=== PATIENT | male | born 1945 | race Hispanic/Latino ===

== ENCOUNTER 2017-10-03 18:46 | Inpatient (IN) | payer MEDICARE ==
[~2017-10-03] VITALS: Ht 170.2 cm; Wt 85.1 kg
[2017-10-03 19:09] LABS: CREATININE 1.2 mg/dL (0.5-1.5); POTASSIUM 3.7 mmol/L (3.5-5.1)
[2017-10-03 19:14] LABS: ALBUMIN 3.5 g/dL (3.5-5.0); BILIRUBIN,TOTAL 0.2 mg/dL (0.2-1.0); TOTAL PROTEIN, SERUM 7.2 g/dL (6.0-8.3)
[2017-10-03] MEDS ORDERED: GLUCAGON 1MG KIT 1 MG ML ONE (19:32)
[2017-10-03] MEDS ORDERED: TETRACAINE HCL 0.5% 4 ML OPHTH SOLN ONE (20:43)
[2017-10-03 21:53] LABS: BASOPHILS % (AUTO) 0.4 % (0.0-5.0); HEMATOCRIT 41.5 % (42-54); LYMPHOCYTES % (AUTO) 28.5 % (21.0-51.0); MEAN CORPUSCULAR HEMOGLOBIN 27.2 pg (27.0-33.0); MEAN CORPUSCULAR VOLUME 79.9 fL (79-99); MONOCYTES % (AUTO) 8.4 % (3.0-13.0); NEUTROPHILS % (AUTO) 59.7 % (40.0-77.0); NUCLEATED RED BLOOD CELLS 0.1 % (0.0-0.19); PLATELET COUNT (AUTO) 271 K/uL (130-400); WHITE BLOOD COUNT (AUTO) 10.2 K/uL (4.8-10.8)
[2017-10-03 23:00] VITALS: BP 160/73
[2017-10-04] MEDS ORDERED: CEFTRIAXONE SODIUM 1 GM IVP SCH (01:00)
[2017-10-04] MEDS ORDERED: IPRATROPIUM/ALBUTEROL SULFATE 3 ML SOLUTION IH SCH ×2 (01:00→06:00)
[2017-10-04] MEDS ORDERED: 1/2 NORMAL SALINE 1,000 ML IV SCH (01:00)
[2017-10-04 03:15] VITALS: BP 181/86
[2017-10-04] MEDS: CEFTRIAXONE SODIUM 1 GM IV SCH (03:18)
[2017-10-04] MEDS ORDERED: ONDANSETRON HCL MDV 20ML 2 MG/ML VIAL IVP PRN (03:30)
[2017-10-04 04:53] LABS: ALBUMIN 3.3 g/dL (3.5-5.0); BILIRUBIN,TOTAL 0.3 mg/dL (0.2-1.0); TOTAL PROTEIN, SERUM 6.8 g/dL (6.0-8.3)
[2017-10-04 04:59] LABS: HEMATOCRIT 38.9 % (42-54); MEAN CORPUSCULAR HEMOGLOBIN 27.3 pg (27.0-33.0); MEAN CORPUSCULAR HGB CONC 34.6 g/dL (32.0-36.0); MEAN CORPUSCULAR VOLUME 78.9 fL (79-99); PLATELET COUNT (AUTO) 267 K/uL (130-400); RED BLOOD CELL COUNT(AUTO) 4.93 MIL/uL (4.50-6.20); RED CELL DISTRIBUTION WIDTH 13.2 % (11.0-15.5); WHITE BLOOD COUNT (AUTO) 11.1 K/uL (4.8-10.8)
[2017-10-04 05:51] LABS: ERYTHROCYTE SEDIMENTATION RATE 25 MM/HR (0-15)
[2017-10-04] MEDS: IPRATROPIUM/ALBUTEROL SULFATE 3 ML SOLUTION IH SCH ×3 (06:27→18:42)
[2017-10-04 06:51] LABS: ABG BASE EXCESS -1.2 mmol/L (-2.0-3.0); ABG HCO3 23.3 mmol/L (21.0-28.0); ABG OXYGEN SATURATION 93.2 % (95.0-99.0); ABG PCO2 39 mmHg (35-48)
[2017-10-04 08:00] VITALS: BP 172/70
[2017-10-04] MEDS ORDERED: CLONIDINE HCL 0.1 MG TABLET PO PRN (09:45)
[2017-10-04 11:45] VITALS: BP 174/87
[2017-10-04 15:57] VITALS: BP 141/64
[2017-10-04 19:20] VITALS: BP 154/76
[2017-10-05 00:12] VITALS: BP 140/83
[2017-10-05] MEDS: IPRATROPIUM/ALBUTEROL SULFATE 3 ML SOLUTION IH SCH ×3 (00:51→11:54)
[2017-10-05] MEDS: CEFTRIAXONE SODIUM 1 GM IV SCH (02:25)
[2017-10-05 04:20] VITALS: BP 160/70
[2017-10-05] MEDS ORDERED: POTASSIUM CHLORIDE 20MEQ/100ML 100 ML IV PRN ×2 (07:30)
[2017-10-05] MEDS ORDERED: POTASSIUM CHLORIDE 10% ELIXIR 20 MEQ/15 ML UDCUP PO PRN ×2 (07:30)
[2017-10-05] MEDS ORDERED: POTASSIUM CHLORIDE 20 MEQ ERTAB PO PRN ×2 (07:30)
[2017-10-05] MEDS ORDERED: LIDOCAINE HCL-MPF 1% 2ML VIAL IVP PRN ×2 (07:30)
[2017-10-05 08:00] VITALS: BP 158/83
[2017-10-05] MEDS ORDERED: ASPIRIN 325 MG TABLET PO SCH (09:00)
[2017-10-05 11:00] VITALS: BP 142/76
[2017-10-05] MEDS ORDERED: ATORVASTATIN CALCIUM 40 MG TABLET PO SCH (11:45)
[2017-10-05] MEDS ORDERED: ALBU8.5H8 IH (12:13)
[2017-10-05] MEDS ORDERED: LOSA50TA37 PO (12:13)
[2017-10-05] MEDS ORDERED: AMLO5TAB2 PO (12:13)
[2017-10-05] MEDS ORDERED: ROSU20TA30 PO (12:13)
== END 2017-10-05 14:04 | disposition home or self-care (01) | DRG 67 ==
LOC: EDH 18:46 → EDHIP 21:50 → OBSVTOIN 21:50 → 3DH 23:16
PROVIDERS: ADMIT Internal Medicine; ATTEND Internal Medicine
DX: I65.29 Occlusion and stenosis of unspecified carotid artery (principal); I63.9 Cerebral infarction, unspecified; J44.9 Chronic obstructive pulmonary disease, unspecified; I10 Essential (primary) hypertension; Z87.891 Personal history of nicotine dependence
CPT/HCPCS: 36415; 36600; 70360; 70450; 70551; 71046; 80053; 82140; 82803; 85025; 85027; 85651; 93005; 93306; 93880; 94010; 94640; 94664; 99291; A4218; J0696; J1610

== ENCOUNTER 2017-11-06 11:51 | Emergency (ER) | payer MEDICARE ==
[~2017-11-06 11:51] MED LIST: ALBU8.5H8 IH; AMLO5TAB2 PO; LOSA50TA37 PO; ROSU20TA38 PO
[2017-11-06 12:20] LABS: BASOPHILS % (AUTO) 0.9 % (0.0-5.0); EOSINOPHILS % (AUTO) 1.7 % (0.0-8.0); HEMATOCRIT 43.2 % (42-54); LYMPHOCYTES % (AUTO) 23.8 % (21.0-51.0); MEAN CORPUSCULAR HEMOGLOBIN 27.5 pg (27.0-33.0); MEAN CORPUSCULAR HGB CONC 34.5 g/dL (32.0-36.0); MEAN CORPUSCULAR VOLUME 79.7 fL (79-99); MONOCYTES % (AUTO) 7.2 % (3.0-13.0); NEUTROPHILS % (AUTO) 66.4 % (40.0-77.0); NUCLEATED RED BLOOD CELLS 0.1 % (0.0-0.19); PLATELET COUNT (AUTO) 257 K/uL (130-400); RED BLOOD CELL COUNT(AUTO) 5.43 MIL/uL (4.50-6.20); RED CELL DISTRIBUTION WIDTH 14.3 % (11.0-15.5); WHITE BLOOD COUNT (AUTO) 10.6 K/uL (4.8-10.8)
[2017-11-06 12:34] LABS: CREATININE 1.1 mg/dL (0.5-1.5); POTASSIUM 3.8 mmol/L (3.5-5.1)
[2017-11-06 12:41] LABS: ALBUMIN 3.7 g/dL (3.5-5.0); BILIRUBIN,TOTAL 0.3 mg/dL (0.2-1.0); TOTAL PROTEIN, SERUM 6.7 g/dL (6.0-8.3)
== END 2017-11-06 14:07 | disposition home or self-care (01) ==
LOC: EDH 11:51
DX: R20.2 Paresthesia of skin (principal); J44.9 Chronic obstructive pulmonary disease, unspecified; I10 Essential (primary) hypertension; Z86.73 Personal history of transient ischemic attack (TIA), and cerebral infarction without residual deficits; Z91.19 Patient's noncompliance with other medical treatment and regimen; Z72.0 Tobacco use
CPT/HCPCS: 36415; 70450; 80053; 85025; 93005

== ENCOUNTER 2018-01-25 10:40 | Emergency (ER) | payer MEDICARE ==
[~2018-01-25 10:40] MED LIST changes: -AMLO5TAB2 PO; +AMLO5TAB7 PO; +LOSA50TA25 PO; -LOSA50TA37 PO; +ROSU20TA30 PO; -ROSU20TA38 PO
== END 2018-01-25 11:01 | disposition home or self-care (01) ==
LOC: EDH 10:40
DX: N48.1 Balanitis (principal); N47.1 Phimosis; I10 Essential (primary) hypertension; J44.9 Chronic obstructive pulmonary disease, unspecified; Z86.73 Personal history of transient ischemic attack (TIA), and cerebral infarction without residual deficits; Z72.0 Tobacco use

== ENCOUNTER 2018-07-19 05:33 | Emergency (ER) | payer MEDICARE ==
[~2018-07-19 05:33] MED LIST changes: -AMLO5TAB7 PO; +AMLO5TAB9 PO; -LOSA50TA25 PO; +LOSA50TA64 PO
[2018-07-19] MEDS ORDERED: MECLIZINE HCL 25 MG TABLET ONE (06:10)
[2018-07-19] MEDS ORDERED: ONDANSETRON HCL 4 MG/2 ML VIAL ONE (06:10)
[2018-07-19 06:21] LABS: BASOPHILS % (AUTO) 1.3 % (0.0-5.0); EOSINOPHILS % (AUTO) 3.9 % (0.0-8.0); HEMATOCRIT 46.8 % (42-54); MEAN CORPUSCULAR HEMOGLOBIN 27.1 pg (27.0-33.0); MEAN CORPUSCULAR HGB CONC 33.1 g/dL (32.0-36.0); MEAN CORPUSCULAR VOLUME 81.9 fL (79-99); MONOCYTES % (AUTO) 8.6 % (3.0-13.0); NEUTROPHILS % (AUTO) 61.2 % (40.0-77.0); PLATELET COUNT (AUTO) 192 K/uL (130-400); RED BLOOD CELL COUNT(AUTO) 5.71 MIL/uL (4.50-6.20); RED CELL DISTRIBUTION WIDTH 13.6 % (11.0-15.5); WHITE BLOOD COUNT (AUTO) 9.1 K/uL (4.8-10.8)
[2018-07-19] MEDS ORDERED: LABETALOL 20 MG/4 ML DISP.SYRIN IV ONE (06:55)
== END 2018-07-19 09:50 | disposition home or self-care (01) ==
LOC: EDH 05:33
DX: I10 Essential (primary) hypertension (principal); J44.9 Chronic obstructive pulmonary disease, unspecified; Z86.73 Personal history of transient ischemic attack (TIA), and cerebral infarction without residual deficits; Z72.0 Tobacco use
CPT/HCPCS: 36415; 70450; 80048; 84484; 85025; 93005; 96374; 96375; 99284; J2405

== ENCOUNTER 2018-08-10 19:20 | Inpatient (IN) | payer MEDICARE ==
[~2018-08-10] VITALS: Ht 170.2 cm; Wt 70.6 kg
[2018-08-10 20:00] LABS: BASOPHILS % (AUTO) 0.5 % (0.0-5.0); EOSINOPHILS % (AUTO) 0.4 % (0.0-8.0); HEMATOCRIT 49.8 % (42-54); LYMPHOCYTES % (AUTO) 13.3 % (21.0-51.0); MEAN CORPUSCULAR HEMOGLOBIN 27.4 pg (27.0-33.0); MEAN CORPUSCULAR HGB CONC 33.8 g/dL (32.0-36.0); MONOCYTES % (AUTO) 9.3 % (3.0-13.0); NEUTROPHILS % (AUTO) 76.5 % (40.0-77.0); PLATELET COUNT (AUTO) 248 K/uL (130-400); RED BLOOD CELL COUNT(AUTO) 6.15 MIL/uL (4.50-6.20); RED CELL DISTRIBUTION WIDTH 13.9 % (11.0-15.5); WHITE BLOOD COUNT (AUTO) 11.8 K/uL (4.8-10.8)
[2018-08-10 20:11] LABS: POTASSIUM 4.1 mmol/L (3.5-5.1)
[2018-08-10 20:13] LABS: INR 1.03 (0.85-1.15); PARTIAL THROMBOPLASTIN TIME 28.5 SEC (26.3-35.5); PROTHROMBIN TIME 10.8 SEC (9.6-11.6)
[2018-08-10 20:22] LABS: TOTAL PROTEIN, SERUM 7.3 g/dL (6.0-8.3)
[2018-08-10] MEDS ORDERED: ASPIRIN 325 MG TABLET ONE (20:47)
[2018-08-10] MEDS ORDERED: ACETAMINOPHEN 325 MG TAB ONE (20:48)
[2018-08-10] MEDS ORDERED: NITROGLYCERIN 1GM/1 INCH PACKET TD ONE (20:48)
[2018-08-10] MEDS ORDERED: DiphenhydrAMINE HCL 50 MG/ML VIAL ONE (23:22)
[2018-08-10] MEDS ORDERED: HALOPERIDOL LACTATE 5 MG/ML VIAL ONE (23:38)
[2018-08-11 04:07] LABS: CREATINE KINASE, TOTAL 166 U/L (21-232); MYOGLOBIN 125 ng/mL (10-92); TROPONIN I < 0.04 ng/mL (0.00-0.06)
[2018-08-11] MEDS ORDERED: LORAZEPAM 2 MG/ML 1 ML VIAL IVP PRN (04:45)
[2018-08-11] MEDS ORDERED: LORAZEPAM 2 MG/ML 1 ML VIAL ONE (05:33)
[2018-08-11 07:45] VITALS: BP 166/69
--- NOTE | 2018-08-11 08:00 | NUR ---
ADMISSION PATIENT ADMITED FROM ER. ALTERED MENTAL STATUS. RESTLESS AND ANXIOUS. OLESYA WIGGINS, INSIDE THE ROOM ON A ONE TO ONE CARE. VS TAKEN AND RECORDED. BLOOD PRESSURE HIGH. WILL CONTINUE TO MONITOR PATIENT.
[2018-08-11 11:00] VITALS: BP 172/89
--- NOTE | 2018-08-11 12:14 | NUR ---
CALLED DR. VIGIL ORDER FOR CLONIDINE FOR HIGH BLOOD PRESSURE. HOWEVER, PT UNABLE TO SWALLOW PILLS RIGHT NOW DUE TO AMS.
--- NOTE | 2018-08-11 13:12 | NUR ---
DR. VIGIL CALLED AGAIN. WAITING FOR CALL BACK.
[2018-08-11 16:00] VITALS: BP 166/72
--- NOTE | 2018-08-11 18:07 | NUR ---
MD ROUNDS DR. ARELLANO VISITED WITH PATIENT. POC DISCUSSED.
[2018-08-11 19:37] VITALS: BP 163/79
[2018-08-11] MEDS: PHARMACY COMMUNICATION MISC SCH ×2 (19:43→20:54)
[2018-08-11] MEDS: BUSPIRONE HCL 5 MG TABLET PO SCH (21:41)
[2018-08-12] VITALS (8 sets, daily range): BP systolic 143–211; BP diastolic 54–97
[2018-08-12] MEDS: CLONIDINE HCL 0.1 MG TABLET PO PRN ×2 (05:32→21:40)
[2018-08-12] MEDS ORDERED: LORAZEPAM 2 MG/ML 1 ML VIAL IVP PRN (07:15)
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
[2018-08-12] MEDS: PHARMACY COMMUNICATION MISC SCH ×3 (09:00→21:00)
[2018-08-12] MEDS: BUSPIRONE HCL 5 MG TABLET PO SCH ×3 (09:00→21:38)
[2018-08-12] MEDS: DULOXETINE 20 MG PO SCH (09:00)
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
--- NOTE | 2018-08-12 11:52 | NUR ---
[facility] Charles recd call from Lynnette at [facility]. She has spoke to Franck and referral needs to be faxed to [phone]. LOUIE faxed referral and Pasrr to Franck at requested
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
--- NOTE | 2018-08-12 12:35 | NUR ---
CM Note: [facility] pending acceptance Spoke to Leonor w[facility], received clinicals and pasrr, will come eval pt. Pt pending acceptance. EMS filled out, pending to be faxed w/current date, pending primary nurse to call [facility] once pt has approval and ready to dc. Primary nurse aware. CM to cont to follow up.
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
--- NOTE | 2018-08-12 16:50 | NUR ---
PATIENT UNABLE TO SWALLOW PILLS. DR. VIGIL MADE AWARE PATIENT NOT EATING. STARTED ON IV FLUIDS PER MD ORDERS FOR HYDRATION. DR. VIGIL TO SEE PATIENT TOMORROW.
[2018-08-12] MEDS: 1/2 NORMAL SALINE 1,000 ML IV SCH (19:45)
[2018-08-12] MEDS ORDERED: LOSA100T58 PO (20:14)
[2018-08-12] MEDS ORDERED: ALPR0.255 PO (20:14)
[2018-08-13] MEDS: 1/2 NORMAL SALINE 1,000 ML IV SCH ×2 (03:00→07:16)
[2018-08-13 05:08] VITALS: BP 179/83
[2018-08-13 07:00] VITALS: BP 204/68
[2018-08-13] MEDS: DULOXETINE 20 MG PO SCH (09:00)
[2018-08-13] MEDS: BUSPIRONE HCL 5 MG TABLET PO SCH ×3 (09:56→22:32)
[2018-08-13] MEDS: CLONIDINE HCL 0.1 MG TABLET PO PRN (09:57)
[2018-08-13 11:00] VITALS: BP 196/90
--- NOTE | 2018-08-13 12:38 | NUR ---
FOLLOW-UP COMPLETED. Pt PARTICIPATED IN AN MBSS YESTERDAY 08/13/2018 WITH RECOMMENDATIONS FOR NPO STATUS. PER NURSE SHON MD ORDERS TO CONTINUE P.O. TOLERATED BY Pt. Pt IS AT HIGH RISK FOR ASPIRATION AT THIS TIME. WRITING TUTOR OFF OF THE CASE AT THIS TIME. PLEASE REQUEST RE-EVALUATION IF SKILLED INTERVENTION IS REQUESTED BY MD. Addendum: 08/13/18 at 1242 by LOUISA STEWART [facility] Amended: Links added.
--- NOTE | 2018-08-13 14:37 | NUR ---
DR. VIGIL NOTIFIED OF PATIENT UNABLE TO SWALLOW FOOD OR MEDICATIONS. PATIENT POCKETS FOOD AND STARTS TO COUGH WITH AND LIQUIDS. PATIENT WITH B/P OF 218/81 REQUESTED IVP MEDICATIONS. PER DR. VIGIL, JUST GIVE PO MEDS FOR NOW. WILL CONTACT PATIENT'S FAMILY REGARDING PALLIATIVE CARE. WILL CONTINUE TO MONITOR PATIENT CLOSELY.
--- NOTE | 2018-08-13 14:53 | NUR ---
PATIENT UNABLE TO SWALLOW ANY FOOD OR MEDICATIONS. MEDS CRUSHED AND MIXED WITH APPLE SAUCE. PATIENT POCKETS FOOD AND BEGANS COUGHING. DR. MUSA BOLES.
[2018-08-13 16:00] VITALS: BP 173/83
--- NOTE | 2018-08-13 17:35 | NUR ---
CALL RECEIVED FROM DR. VIGIL REGARDING NEW ORDERS FOR DNR STATUS AND [facility]. PER DR. VIGIL, WILL SPEAK TO FAMILY FIRST.
--- NOTE | 2018-08-13 17:45 | NUR ---
PATIENT'S BROTHERS PRESENT AT BEDSIDE, ASKED REGARDING HOSPICE AND DNR STATUS. ONE BROTHER STATED NO ONE WILL SIGN DNR STATUS UNTIL ALL THE FAMILY IS TOGETHER TO MAKE THAT FINAL DECISION. THE FAMILY AT TO MEET AT THE SISTER'S HOUSE TOMORROW MORNING TO DISCUSS HOSPICE PLACEMENT. WILL CONTINUE TO MONITOR PATIENT CLOSELY.
[2018-08-13 20:17] VITALS: BP 165/67
[2018-08-13] MEDS: OLANZAPINE ODT 5 MG TAB SL SCH (22:32)
[2018-08-13 23:42] VITALS: BP 147/68
[2018-08-14 04:00] VITALS: BP 182/52
[2018-08-14 08:00] VITALS: BP 189/75
[2018-08-14] MEDS: BUSPIRONE HCL 5 MG TABLET PO SCH ×3 (08:59→21:00)
[2018-08-14] MEDS: DULOXETINE HCL 30 MG CAP PO SCH (08:59)
[2018-08-14] MEDS: OLANZAPINE ODT 5 MG TAB SL SCH ×3 (08:59→21:00)
[2018-08-14] MEDS: 1/2 NORMAL SALINE 1,000 ML IV SCH (09:02)
--- NOTE | 2018-08-14 09:37 | NUR ---
[facility] ARACELI recd call from Olga at [facility]. Pt was denied yesterday because of behavior issues. Olga came and did eval and spoke to staff, who report no behavior issues during admission. Olga went back to facility and asked that they reconsider pt. Informed her that wrote order for hospice. Olga to talk to facility and see if hospice on board, will they accept. Araceli tried reaching brother, no answer. Will keep trying and tho discuss hospice and DNR order
--- NOTE | 2018-08-14 09:58 | NUR ---
FAMILY Sw spoke to pt's sister Heydi Collier [phone]. Sister states she has spoke to brother Martín and other siblings and they agree to hospice and DNR. Sister states she told brother and family that she does not want pt suffering anymore. Per sister, recommended no feeding tube. Sister on her way to hospital and states she will sign needed paperwork for hospice and placement. Sister informed that [facility] still has not accepted and is waiting for family decision on hospice
--- NOTE | 2018-08-14 11:30 | NUR ---
DCP: PENDING ACCEPTANCE TO [facility] with [facility] Sw met with pt's sister Heydi Collier. Sister states family in agreement with plan for hospice and DNR. Sister signed DNR and OOHDNR and consent for referral to [facility] hospice. SW made referral to Mamie at [facility] and she will contact sister and make arrangements to meet to complete paperwork. LOUIE notified Olga at [facility] of [facility] hospice now on board and pt is DNR. Olga to re staff referral with her amdin to see if they will now accept. CM aware of above. Waiting on acceptance from [facility] and [facility] to get OOHDNR signed by Dr Rob
[2018-08-14 12:00] VITALS: BP 166/70
[2018-08-14 16:32] VITALS: BP 176/70
--- NOTE | 2018-08-14 16:47 | NUR ---
CM Note: [facility] acceptance As per Mehreen PALMA pt has acceptance to [facility] hospice. EMS arranged and faxed, primary nurse to call [facility] once pt ready to dc. Primary nurse aware. CM to cont to follow up.
[2018-08-14 19:45] VITALS: BP 196/85
[2018-08-14 23:30] VITALS: BP 139/56
[2018-08-15 03:33] VITALS: BP 162/88
[2018-08-15 08:00] VITALS: BP 156/72
[2018-08-15] MEDS: DULOXETINE HCL 30 MG CAP PO SCH (09:00)
[2018-08-15] MEDS: OLANZAPINE ODT 5 MG TAB SL SCH ×2 (09:00→14:00)
[2018-08-15] MEDS: BUSPIRONE HCL 5 MG TABLET PO SCH ×2 (09:00→14:00)
--- NOTE | 2018-08-15 09:47 | NUR ---
DCP; Nurse Marina informed that DME to be delivered within 4 hours to Vasquez Hatch at [facility]. [facility] to contact nurse when DME is at facility. Nurse to call report to [facility] and [facility]. Transport arrangements on chart by EUN.
[2018-08-15] MEDS: 1/2 NORMAL SALINE 1,000 ML IV SCH (10:55)
[2018-08-15 11:30] VITALS: BP 152/79
--- NOTE | 2018-08-15 14:07 | NUR ---
DME delivered. Pt is ready for dc. Cm notified
--- NOTE | 2018-08-15 18:26 | NUR ---
REPORT GIVEN TO GARRETT HORVATH AT [facility] AND REPORTED THAT EMS WAS HERE TO TRANSPORT PATIENT TO [facility]. PATIENT STILL UNRESPONSIVE TO [facility] ST[facility]ULI. REPORT WAS ALSO CALLED TO ALEJA CISNEROS AT [facility] .
== END 2018-08-15 18:15 | DRG 66 ==
LOC: EDH 19:20 → EDHIP 08-11 03:13 → OBSVTOIN 08-11 03:13 → 3CH 08-11 08:13
PROVIDERS: ADMIT Internal Medicine; ATTEND Internal Medicine
DX: I63.9 Cerebral infarction, unspecified (principal); R07.89 Other chest pain; F03.90 Unspecified dementia, unspecified severity, without behavioral disturbance, psychotic disturbance, mood disturbance, and anxiety; Z51.5 Encounter for palliative care; H91.90 Unspecified hearing loss, unspecified ear; E78.5 Hyperlipidemia, unspecified; F39 Unspecified mood [affective] disorder; F60.7 Dependent personality disorder; H54.8 Legal blindness, as defined in USA; I10 Essential (primary) hypertension; R13.10 Dysphagia, unspecified; J44.9 Chronic obstructive pulmonary disease, unspecified; M48.00 Spinal stenosis, site unspecified; F41.9 Anxiety disorder, unspecified; F17.210 Nicotine dependence, cigarettes, uncomplicated; R41.0 Disorientation, unspecified; Z86.73 Personal history of transient ischemic attack (TIA), and cerebral infarction without residual deficits
CPT/HCPCS: 36415; 70450; 71045; 74230; 80053; 82550; 83874; 84484; 85025; 85610; 85730; 92610; 92611; 93005; G0378; J1200; J1630; J2060